=== PATIENT | female | born 1955 | race Two or more races ===

== ENCOUNTER 2016-08-07 19:58 | Emergency (ER) | payer SELFPAY ==
[~2016-08-07] VITALS: Ht 165.1 cm; Wt 72.6 kg
[2016-08-07] MEDS ORDERED: diphenhdrAMINE HCL 50 MG/1 ML VL IV ONE (20:45)
[2016-08-07] MEDS ORDERED: SODIUM CHLORIDE 0.9% 1,000 ML IV ONE (20:45)
[2016-08-07] MEDS ORDERED: methylPREDNISolone SOD SUCC 125 MG/2 ML VL IV ONE (20:45)
[2016-08-07 21:02] LABS: Basophils # (auto) 0 uL; DEFINITIVE VIEW TRANSMISSION; Eosinophils # (auto) 0 uL; Eosinophils % (auto) 0.2 % (0.0-7.0); Hematocrit 28.5 % (36.0-46.0); Lymphocytes # (auto) 1.8 uL; Lymphocytes % (auto) 28.4 % (10.0-50.0); Mean Corpuscular Hemoglobin 22.8 pg (28.0-32.0); Mean Corpuscular Hgb Conc. 31.4 g/dL (32.0-36.0); Mean Corpuscular Volume 72.6 fL (80.0-100.0); Mean Platelet Volume 6.5 fL (7.4-10.4); Monocytes # (auto) 0.3 uL; Monocytes % (auto) 4.9 % (0.0-12.0); Neutrophils # (auto) 4.2 uL; Neutrophils % (auto) 66.5 % (37.0-80.0); Platelet Count (auto) 498 10^3/uL (140-450); White Blood Cell 6.3 10^3/uL (4.4-10.8)
[2016-08-07 21:04] VITALS: BP 127/88
[2016-08-07 21:32] LABS: BUN/Creatinine Ratio 18.2; Calcium 7.7 mg/dL (8.5-10.1); Potassium 3.9 mmol/L (3.5-5.1)
[2016-08-07 21:35] LABS: Bilirubin, Total 0.1 mg/dL (0.2-1.0)
== END 2016-08-07 21:36 | disposition home or self-care (01) ==
LOC: EDBD 19:58 → ER 20:00
DX: R21 Rash and other nonspecific skin eruption (principal); R06.02 Shortness of breath; T78.40XA Allergy, unspecified, initial encounter; G43.909 Migraine, unspecified, not intractable, without status migrainosus; Z90.710 Acquired absence of both cervix and uterus; Z90.49 Acquired absence of other specified parts of digestive tract; Z98.51 Tubal ligation status
CPT/HCPCS: 36415; 80053; 85025; 93005; 94761; 96361; 96374; 96375; 99285; J1200; J2930

== ENCOUNTER 2018-01-03 13:45 | Emergency (ER) | payer OTHER ==
[~2018-01-03] VITALS: Ht 165.1 cm; Wt 72.6 kg
[2018-01-03] MEDS ORDERED: cefTRIAXone SOD 1,000 MG VL IM ONE (14:30)
[2018-01-03 14:36] VITALS: BP 154/90
[2018-01-03 14:40] LABS: Basophils # (auto) 0 uL; Basophils % (auto) 0.3 % (0.0-2.0); Eosinophils # (auto) 0 uL; Hemoglobin 12.2 g/dL (12.2-16.2); Lymphocytes # (auto) 1.3 uL; Lymphocytes % (auto) 24.7 % (10.0-50.0); Mean Corpuscular Hemoglobin 28.9 pg (28.0-32.0); Mean Corpuscular Volume 87.4 fL (80.0-100.0); Monocytes # (auto) 0.3 uL; Monocytes % (auto) 5.2 % (0.0-12.0); Neutrophils # (auto) 3.8 uL; Neutrophils % (auto) 69.8 % (37.0-80.0); Nucleated Red Blood Cells % 0.2 %; Platelet Count (auto) 335 10^3/uL (140-450); Red Blood Cells 4.24 10^6/uL (4.0-5.20); Red Cell Distribution Width 18.3 % (11.8-14.3); White Blood Cell 5.4 10^3/uL (4.4-10.8)
[2018-01-03 15:16] LABS: Albumin 3.7 g/dL (3.4-5.0); BUN/Creatinine Ratio 12.5; Bilirubin, Total 0.2 mg/dL (0.2-1.0); Calcium 8.5 mg/dL (8.5-10.1); Potassium 3.8 mmol/L (3.5-5.1); Total Protein 8.9 g/dL (6.4-8.2)
== END 2018-01-03 16:13 | disposition home or self-care (01) ==
LOC: ER 13:59
DX: S31.000D Unspecified open wound of lower back and pelvis without penetration into retroperitoneum, subsequent encounter (principal); Z87.11 Personal history of peptic ulcer disease; Z98.51 Tubal ligation status; Z90.710 Acquired absence of both cervix and uterus; X58.XXXD Exposure to other specified factors, subsequent encounter
CPT/HCPCS: 36415; 80053; 85025; 96372; 99284; J0696

== ENCOUNTER 2019-02-26 15:18 | Inpatient (IN) | payer OTHER ==
[2019-02-26] VITALS (10 sets, daily range): BP systolic 92–110; BP diastolic 54–68
[~2019-02-26] VITALS: Ht 165.1 cm; Wt 75.3 kg
[2019-02-26] MEDS ORDERED: SODIUM CHLORIDE 0.9% 1,000 ML IVB ONE (15:54)
[2019-02-26] MEDS ORDERED: ONDANSETRON HCL 4 MG/2 ML VIAL IV ONE (16:00)
[2019-02-26 16:43] LABS: Basophils # (auto) 0 uL; Eosinophils # (auto) 0 uL; Lymphocytes # (auto) 0.8 uL; Monocytes # (auto) 0.1 uL; Monocytes % (auto) 2.6 % (0.0-12.0); Neutrophils # (auto) 3.1 uL; Nucleated Red Blood Cells % 0.1 %; Red Blood Cells 1.45 10^6/uL (4.0-5.20)
[2019-02-26 16:46] LABS: Albumin 3.8 g/dL (3.4-5.0); Calcium 8.3 mg/dL (8.5-10.1); Magnesium 1.8 mg/dL (1.6-2.6); Potassium 3.7 mmol/L (3.5-5.1)
[2019-02-26 16:48] LABS: Total Protein 6.8 g/dL (6.4-8.2)
[2019-02-26 16:49] LABS: Basophils % (auto) 0.2 % (0.0-2.0); Hematocrit 16.3 % (36.0-46.0); Lymphocytes % (auto) 20.9 % (10.0-50.0); Mean Corpuscular Hemoglobin 40.8 pg (28.0-32.0); Mean Corpuscular Hgb Conc. 36.3 g/dL (32.0-36.0); Mean Corpuscular Volume 112.4 fL (80.0-100.0); Neutrophils % (auto) 76.3 % (37.0-80.0); Platelet Count (auto) 110 10^3/uL (140-450)
[2019-02-26 17:02] LABS: Red Cell Distribution Width 22.5 % (11.8-14.3)
[2019-02-26 17:04] LABS: Hemoglobin 5.9 g/dL (12.2-16.2)
[2019-02-26] MEDS ORDERED: PROMETHAZINE HCL 25 MG/ML 1ML IV ONE (17:15)
[2019-02-26] MEDS ORDERED: MORPHINE SULF INJ 2 MG/ML SYRINGE 1ML IV ONE (17:15)
[2019-02-26] MEDS ORDERED: TEMAZEPAM 15 MG CAP PO PRN (21:45)
[2019-02-26] MEDS ORDERED: ACETAMINOPHEN 325 MG TAB PO PRN (21:45)
[2019-02-26] MEDS: FAMOTIDINE 20 MG TAB PO SCH ×2 (22:05→22:23)
[2019-02-26 22:14] LABS: % Iron Saturation 83.2 % (15-50)
[2019-02-27] VITALS (9 sets, daily range): BP systolic 98–122; BP diastolic 59–68
--- NOTE | 2019-02-27 00:44 | NUR ---
MS admit from ER ROMINA DOWELL admitted to tele/MS after SBAR received. Patient oriented to Quita Reyes, primary RN, unit, room, bed, and unit policies regarding patient care and visiting hours. Patient weighed by bed scale and encouraged to call if they need something. All questions and concerns addressed, patient verbalized understanding.
[2019-02-27] MEDS ORDERED: [UNRECOGNIZED DRUG - CODE] PO (01:05)
--- NOTE | 2019-02-27 01:50 | NUR ---
patient complains of IV being painful. IV d/c'd with clean sterile technique, patient tolerated well. New 22 gauge IV inserted via clean sterile technique after one attempt into the right forearm.
--- NOTE | 2019-02-27 02:20 | NUR ---
[facility] SWAB SENT TO LAB
[2019-02-27 07:05] LABS: Basophils # (auto) 0 uL; Eosinophils # (auto) 0 uL; Hemoglobin 8.6 g/dL (12.2-16.2); Lymphocytes # (auto) 0.9 uL; Monocytes # (auto) 0.1 uL; White Blood Cell 2.4 10^3/uL (4.4-10.8)
[2019-02-27 07:10] LABS: Basophils % (auto) 0.4 % (0.0-2.0); Hematocrit 24.1 % (36.0-46.0); Lymphocytes % (auto) 36.9 % (10.0-50.0); Mean Corpuscular Hemoglobin 36.9 pg (28.0-32.0); Mean Corpuscular Hgb Conc. 35.6 g/dL (32.0-36.0); Mean Corpuscular Volume 103.4 fL (80.0-100.0); Monocytes % (auto) 3.6 % (0.0-12.0); Neutrophils # (auto) 1.4 uL; Neutrophils % (auto) 59.1 % (37.0-80.0); Nucleated Red Blood Cells % 0.4 %; Platelet Count (auto) 98 10^3/uL (140-450); Red Blood Cells 2.33 10^6/uL (4.0-5.20)
[2019-02-27 07:23] LABS: Red Cell Distribution Width 22.9 % (11.8-14.3)
[2019-02-27 07:40] LABS: BUN/Creatinine Ratio 17.3; Calcium 8.2 mg/dL (8.5-10.1)
[2019-02-27 12:25] LABS: INR 1.18 (0.9-1.15); Partial Thromboplastin Time 27.2 sec (23.64-32.05)
[2019-02-27 13:08] LABS: Folate (Folic Acid) 13.56 ng/mL (5.38-24)
[2019-02-27] MEDS ORDERED: POLYETHYLENE GLYCOL 17 GM PWDR PO ONE (15:00)
[2019-02-27] MEDS ORDERED: DOCUSATE SOD 100 MG CAP PO PRN (15:00)
[2019-02-27] MEDS: CYANOCOBALAMIN (B-12) 1000 MCG/1 ML VIAL IM SCH (15:07)
[2019-02-27 15:27] LABS: Hepatitis C Antibody Negative (Negative)
[2019-02-27 15:28] LABS: Hepatitis A Ab IgM Negative; Hepatitis B Core IgM Negative; Hepatitis B Surface Antigen Negative (Negative)
--- NOTE | 2019-02-27 19:35 | NUR ---
OPENING SHIFT NOTE RECEIVED PATIENT REPORT FROM DAY SHIFT RN. PATIENT SITTING UP IN BED TALKING ON HER CELLPHONE. PATIENT IS A/O X 4. NO S/S OF DISTRESS OR SOB. NO PAIN NOTED AT THIS TIME. UPDATED PATIENT ON POC, VERBALIZED UNDERSTANDING. BED IN LOWEST LOCKED POSITION, CALL LIGHT WITHIN REACH. WILL CONTINUE TO MONITOR Q1H AND PRN.
[2019-02-27] MEDS: FAMOTIDINE 20 MG TAB PO SCH (21:24)
[2019-02-28 05:21] VITALS: BP 106/62
[2019-02-28] MEDS: HYDROcodone-ACET 5/325MG TAB PO PRN ×2 (06:33→14:51)
[2019-02-28 07:13] LABS: Basophils # (auto) 0 uL; Basophils % (auto) 0.2 % (0.0-2.0); Eosinophils # (auto) 0 uL; Hemoglobin 8.7 g/dL (12.2-16.2); Monocytes # (auto) 0.1 uL; White Blood Cell 2.2 10^3/uL (4.4-10.8)
[2019-02-28 07:18] LABS: Lymphocytes # (auto) 0.7 uL; Lymphocytes % (auto) 34.4 % (10.0-50.0); Mean Corpuscular Hgb Conc. 36.2 g/dL (32.0-36.0); Mean Corpuscular Volume 102.4 fL (80.0-100.0); Monocytes % (auto) 3.1 % (0.0-12.0); Neutrophils # (auto) 1.4 uL; Neutrophils % (auto) 62.3 % (37.0-80.0); Nucleated Red Blood Cells % 0.3 %; Platelet Count (auto) 94 10^3/uL (140-450); Red Blood Cells 2.34 10^6/uL (4.0-5.20)
[2019-02-28 07:27] LABS: Red Cell Distribution Width 22.6 % (11.8-14.3)
--- NOTE | 2019-02-28 07:45 | NUR ---
OPENING SHIFT NOTE: Received report from [facility] RNs, Rhonda and Keri. Assumed care of patient. Patient resting in bed, denies pain. Bed in lowest position, rails x2 up and call light within reach. Updated on plan of care. Will continue to monitor.
[2019-02-28 09:00] VITALS: BP 111/64
[2019-02-28] MEDS: ONDANSETRON HCL 4 MG/2 ML VIAL IV PRN ×2 (10:01→14:50)
[2019-02-28] MEDS: FAMOTIDINE 20 MG TAB PO SCH (10:01)
[2019-02-28] MEDS: CYANOCOBALAMIN (B-12) 1000 MCG/1 ML VIAL IM SCH (10:01)
[2019-02-28 13:00] VITALS: BP 115/66
--- NOTE | 2019-02-28 16:26 | NUR ---
D/C Planning Per consult for home health for vitamin b12 intramuscular injection x5 days weekly x4 weeks. RX will be given to patient. Contact [employer] [facility] Ph:) Fax:) faxed medical records. Per Fay from [facility] patient has been accepted and service to start within 48hrs upon d/c day. Contact [facility] medical records Ph:) Fax:) faxed medical records requesting authorization for home health. Informed [facility] [place] ext [phone]. Advised Esperanza to informed RN of accepting home health for Patient. Addendum: 02/28/19 at 1633 by ANDRESSA VILLAREAL Amended: Links added.
[2019-02-28] MEDS ORDERED: CYA100I IM (16:42)
[2019-02-28 17:34] VITALS: BP 119/69
--- NOTE | 2019-02-28 18:20 | NUR ---
DISCHARGE: Discharge instructions given as ordered. Encourage to follow up with PMD as instructed. Patient to call for an appointment due to after hours. All questions and concerns addressed. Patient verbalized understanding. Medication reconciliation form completed and copy given to patient. IV removed with catheter intact, pressure dressing applied. Patient aware of [facility] to follow up to teach regarding Vitamin B12 injections and wound care. Patient taken to vehicle via wheelchair with all personal belongings, accompanied by staff and family member. No distress noted at time of departure.
== END 2019-02-28 18:15 | disposition home health service (06) | DRG 812 ==
LOC: ER 15:18 → EDBD 15:18 → OVERFLOW 15:19 → WEST WING 02-27 00:59
PROVIDERS: ADMIT Nurse Practitioner; ATTEND Internal Medicine
PROC: 30233N1 Transfusion of Nonautologous Red Blood Cells into Peripheral Vein, Percutaneous Approach (ICD-10-PCS; principal; 2019-02-26)
DX: D51.9 Vitamin B12 deficiency anemia, unspecified (principal); K52.9 Noninfective gastroenteritis and colitis, unspecified; K59.00 Constipation, unspecified; D69.6 Thrombocytopenia, unspecified; F32.9 Major depressive disorder, single episode, unspecified; F41.9 Anxiety disorder, unspecified; G43.909 Migraine, unspecified, not intractable, without status migrainosus; D53.9 Nutritional anemia, unspecified; L89.92 Pressure ulcer of unspecified site, stage 2; Z80.3 Family history of malignant neoplasm of breast; Z82.3 Family history of stroke; Z82.49 Family history of ischemic heart disease and other diseases of the circulatory system; Z87.11 Personal history of peptic ulcer disease; Z90.710 Acquired absence of both cervix and uterus; Z83.3 Family history of diabetes mellitus
CPT/HCPCS: 36415; 71045; 74176; 80048; 80053; 80074; 82150; 82607; 82746; 83010; 83540; 83550; 83615; 83690; 83735; 85025; 85045; 85610; 85730; 86664; 86850; 86880; 86900; 86901; 86920; 87081; 93005; 96361; 96374; 96375; G0378; J2405

== ENCOUNTER 2020-07-03 19:15 | Emergency (ER) | payer OTHER ==
[~2020-07-03] VITALS: Ht 165.1 cm; Wt 72.6 kg
[~2020-07-03 19:15] MED LIST: CYA100I IM; [UNRECOGNIZED DRUG - CODE] PO
[2020-07-03 20:57] LABS: Basophils # (auto) 0 10 ^3/uL (0-0.2); Basophils % (auto) 0.1 % (0.0-2.0); Eosinophils # (auto) 0 10 ^3/uL (0-0.8); Hemoglobin 9.8 g/dL (12.2-16.2); Mean Corpuscular Hgb Conc. 32.9 g/dL (32.0-36.0); Monocytes # (auto) 0.5 10 ^3/uL (0-1.3); Monocytes % (auto) 6.9 % (0.0-12.0)
[2020-07-03 20:59] LABS: Hematocrit 29.8 % (36.0-46.0); Lymphocytes # (auto) 1.7 10 ^3/uL (0.4-5.4); Mean Corpuscular Hemoglobin 24.3 pg (28.0-32.0); Neutrophils # (auto) 4.8 10 ^3/uL (1.6-8.6); Platelet Count (auto) 328 10^3/uL (140-450); Red Blood Cells 4.02 10^6/uL (4.0-5.20); Red Cell Distribution Width 17.2 % (11.8-14.3)
[2020-07-03 21:12] LABS: Albumin 2.9 g/dL (3.4-5.0); Calcium 8.1 mg/dL (8.5-10.1); Potassium 3.4 mmol/L (3.5-5.1)
[2020-07-03 21:17] LABS: BUN/Creatinine Ratio 13.6; Bilirubin, Total 0.2 mg/dL (0.2-1.0); Total Protein 8.6 g/dL (6.4-8.2)
[2020-07-03] MEDS ORDERED: ONDANSETRON ODT 4 MG TAB PO ONE (23:15)
[2020-07-03] MEDS ORDERED: KETOROLAC TROMETH 60MG/2ML VIAL IM ONE (23:15)
[2020-07-03] MEDS ORDERED: ACETAMINOPHEN/CODEINE#3 (300/30mg) TAB PO ONE (23:15)
[2020-07-03] MEDS ORDERED: MECLIZINE HCL 25 MG TAB PO ONE (23:15)
[2020-07-04 01:21] VITALS: BP 115/69
== END 2020-07-04 01:30 | disposition home or self-care (01) ==
LOC: ER 19:16
DX: G43.909 Migraine, unspecified, not intractable, without status migrainosus (principal); R42 Dizziness and giddiness; Z98.51 Tubal ligation status; Z90.710 Acquired absence of both cervix and uterus
CPT/HCPCS: 36415; 70450; 80053; 85025; 93005; 99284; J1885; J8597; Q0162

== ENCOUNTER → 2021-10-27 | Emergency (ER) | payer OTHER ==
[2021-10-27 21:18] VITALS: BP 137/81
[2021-10-27 21:58] LABS: Basophils # (auto) 0 10 ^3/uL (0-0.2); Basophils % (auto) 0.2 % (0.0-2.0); Eosinophils # (auto) 0 10 ^3/uL (0-0.8); Hematocrit 35.2 % (36.0-46.0); Lymphocytes # (auto) 1.5 10 ^3/uL (0.4-5.4); Lymphocytes % (auto) 22.2 % (10.0-50.0); Mean Corpuscular Hemoglobin 30.1 pg (28.0-32.0); Mean Corpuscular Hgb Conc. 34.2 g/dL (32.0-36.0); Mean Corpuscular Volume 88.1 fL (80.0-100.0); Monocytes # (auto) 0.4 10 ^3/uL (0-1.3); Neutrophils # (auto) 4.7 10 ^3/uL (1.6-8.6); Neutrophils % (auto) 71.6 % (37.0-80.0); Red Blood Cells 3.99 10^6/uL (4.0-5.20); Red Cell Distribution Width 13.5 % (11.8-14.3); White Blood Cell 6.6 10^3/uL (4.4-10.8)
[2021-10-27 22:11] LABS: Albumin 3.1 g/dL (3.4-5.0); Calcium 8.8 mg/dL (8.5-10.1); Potassium 3.9 mmol/L (3.5-5.1)
[2021-10-27 22:12] LABS: BUN/Creatinine Ratio 12.8
[2021-10-27 22:15] LABS: Bilirubin, Total 0.2 mg/dL (0.2-1.0); Total Protein 7.2 g/dL (6.4-8.2)
== END | disposition home or self-care (01) ==
LOC: EDUNIT# 21:06 → ER 21:15 → EDBD 21:15
DX: R07.89 Other chest pain (principal); Z90.710 Acquired absence of both cervix and uterus; Z98.51 Tubal ligation status
CPT/HCPCS: 36415; 80053; 83880; 84484; 85025; 93005